=== PATIENT | female | born 1950 | race Caucasian/White ===

== ENCOUNTER 2016-03-08 10:20 | Day surgery (SDC) | payer MEDICARE, OTHER ==
[2016-03-08] MEDS ORDERED: KETOROLAC 0.45% OPHTH DROPS OPTH ONE (10:45)
[2016-03-08] MEDS ORDERED: TROPICAMIDE 1% OPHTH 2 ML DROPS OPTH ONE (10:45)
[2016-03-08] MEDS ORDERED: CYCLOPENTOLATE 1% OPHTH DROPS 2 ML OPTH ONE (10:45)
[2016-03-08] MEDS ORDERED: PROPOFOL 200 MG/20 ML VIAL IVP ONE (11:40)
[2016-03-08] MEDS ORDERED: LIDOCAINE-MPF 2% 5 ML VIAL IM ONE (11:40)
[2016-03-08] MEDS ORDERED: fentaNYL 100 MCG/2 ML VIAL IVP ONE (11:40)
[2016-03-08] MEDS ORDERED: MIDAZOLAM 2 MG/2 ML VIAL IVP ONE (11:40)
[2016-03-08] MEDS ORDERED: PROPARACAINE 0.5% OPHTH DROPS 15 ML OPTH ONE (11:41)
[2016-03-08] MEDS ORDERED: CHONDR SULF/HYALURONATE SYRINGE IO ONE (11:41)
[2016-03-08] MEDS ORDERED: levoFLOXacin 0.5% OPHTH DROPS 5 ML OPTH ONE (11:41)
[2016-03-08] MEDS ORDERED: EPINEPHrine 1 MG/ML AMP IO ONE (11:41)
[2016-03-08] MEDS ORDERED: BRIMONIDINE 0.2% OPHTH DROPS 5 ML OPTH ONE (11:41)
[2016-03-08] MEDS ORDERED: BSS/LIDOCAINE/EPINEPHRINE 1 ML SYRINGE IO ONE (11:42)
[2016-03-08] MEDS ORDERED: LACTATED RINGERS 500 ML IV ONE ×2 (11:42)
== END 2016-03-08 10:21 | disposition home or self-care (01) ==
PROC: 08RJ3JZ Replacement of Right Lens with Synthetic Substitute, Percutaneous Approach (ICD-10-PCS; principal; 2016-03-08 11:55)
DX: H26.9 Unspecified cataract (principal); I10 Essential (primary) hypertension; E78.5 Hyperlipidemia, unspecified; M19.90 Unspecified osteoarthritis, unspecified site
CPT/HCPCS: 66982; J7120; V2632

== ENCOUNTER 2016-03-29 08:17 | Day surgery (SDC) | payer MEDICARE, OTHER ==
[2016-03-29] MEDS ORDERED: LACTATED RINGERS 500 ML IV ONE (09:19)
[2016-03-29] MEDS ORDERED: CYCLOPENTOLATE 1% OPHTH DROPS 2 ML OPTH ONE (09:32)
[2016-03-29] MEDS ORDERED: TROPICAMIDE 1% OPHTH 2 ML DROPS OPTH ONE (09:32)
[2016-03-29] MEDS ORDERED: KETOROLAC 0.45% OPHTH DROPS OPTH ONE (09:32)
[2016-03-29] MEDS ORDERED: EPINEPHrine 1 MG/ML AMP IO ONE (11:11)
[2016-03-29] MEDS ORDERED: BRIMONIDINE 0.2% OPHTH DROPS 5 ML OPTH ONE (11:11)
[2016-03-29] MEDS ORDERED: CHONDR SULF/HYALURONATE SYRINGE IO ONE (11:11)
[2016-03-29] MEDS ORDERED: TETRACAINE OPHTH DROPS 2 ML OPTH ONE (11:11)
[2016-03-29] MEDS ORDERED: PROPARACAINE 0.5% OPHTH DROPS 15 ML OPTH ONE (11:11)
[2016-03-29] MEDS ORDERED: levoFLOXacin 0.5% OPHTH DROPS 5 ML OPTH ONE (11:11)
[2016-03-29] MEDS ORDERED: BSS/LIDOCAINE/EPINEPHRINE 1 ML SYRINGE IO ONE ×2 (11:11→11:19)
[2016-03-29] MEDS ORDERED: MIDAZOLAM 2 MG/2 ML VIAL IVP ONE (11:20)
== END 2016-03-29 08:18 | disposition home or self-care (01) ==
PROC: 08RK3JZ Replacement of Left Lens with Synthetic Substitute, Percutaneous Approach (ICD-10-PCS; principal; 2016-03-29 09:55)
DX: H26.9 Unspecified cataract (principal); I10 Essential (primary) hypertension; E78.5 Hyperlipidemia, unspecified; F32.9 Major depressive disorder, single episode, unspecified; E07.9 Disorder of thyroid, unspecified; M54.5 Low back pain; G89.29 Other chronic pain
CPT/HCPCS: 66984; V2632

== ENCOUNTER 2016-06-23 08:00 | Outpatient (CLI) | payer MEDICARE, OTHER | END 2016-06-23 08:01 | disposition home or self-care (01) | DX: E78.5 Hyperlipidemia, unspecified (principal); E03.9 Hypothyroidism, unspecified; C73 Malignant neoplasm of thyroid gland ==

== ENCOUNTER 2016-07-21 13:46 | Outpatient (CLI) | payer MEDICARE, OTHER ==
--- NOTE | 2016-07-24 13:03 | Mammography Report ---
DIGITAL SCREENING MAMMOGRAM: 07/21/2016 CLINICAL INDICATION: A 66-year-old for screening. COMPARISON: 03/2014, 02/2011, 04/2011, 10/2007. TECHNIQUE: Routine CC and MLO projections were obtained of the breasts. FINDINGS: The breasts again demonstrate scattered fibroglandular densities bilaterally. Coarse, typ ically benign calcifications are present. No suspicious masses, clustered microcalcifications, or re gions of architectural distortion are identified. IMPRESSION: BENIGN FINDINGS. RECOMMENDATION: Routine annual screening unless otherwise clinically indicated. BI-RADS category 2, benign findings. STANDARD QUALIFYING STATEMENTS 1. This examination was reviewed with the aid of Computer-Aided Detection (CAD). 2. A negative or benign imaging report should not delay biopsy if clinically suspicious findings are present. Consider surgical consultation if warranted. More than 5% of cancers are not identified by i maging. 3. Dense breasts may obscure an underlying neoplasm. JOB #: [id number] EXT JOB #:[id number]
== END 2016-07-21 13:47 | disposition home or self-care (01) ==
LOC: DI.N 13:46
PROVIDERS: ATTEND Physician Assistant Medical
DX: Z12.31 Encounter for screening mammogram for malignant neoplasm of breast (principal)
CPT/HCPCS: 77067

== ENCOUNTER 2016-08-18 15:56 | Outpatient (CLI) | payer MEDICARE, OTHER ==
--- NOTE | 2016-08-20 10:42 | XRAY Report ---
EXAM: RIGHT KNEE RADIOGRAPHY EXAM DATE: 08/18/2016 04:15 PM. CLINICAL HISTORY: Right knee pain. COMPARISON: None. TECHNIQUE: 3 views. FINDINGS: Bones: Normal. No fractures or bone lesions. Joints: Moderate medial compartment joint space narrowing is accompanied by moderate osteophyte forma tion. There is moderate lateral and mild patellofemoral compartment osteophyte formation. A minimal k nee effusion is seen. Soft Tissues: Normal. No soft tissue swelling. IMPRESSION: Moderate osteoarthritis. Kellgren-Romeo grade 3. Kellgren and Romeo classification of osteoarthritis: Grade 0: no radiographic features of osteoarthritis are present Grade 1: doubtful joint space narrowing (JSN) and possible osteophytic lipping Grade 2: definite osteophytes and possible JSN on anteroposterior weight-bearing radiograph Grade 3: multiple osteophytes, definite JSN, sclerosis, possible bony deformity Grade 4: large osteophytes, marked JSN, severe sclerosis and definite bony deformity [facility] Referring Provider Line: [phone] SITE ID: [id number]
== END 2016-08-18 15:57 | disposition home or self-care (01) ==
LOC: DI.N 15:56
PROVIDERS: ATTEND Physician Assistant Medical
DX: M17.11 Unilateral primary osteoarthritis, right knee (principal)

== ENCOUNTER 2016-09-15 11:51 | Outpatient (CLI) | payer MEDICARE, OTHER ==
[2016-09-15 19:10] LABS: EOSINOPHILS # (AUTO) 0.1 10^3/uL (0.0-0.7); HCT - HEMATOCRIT 38.9 % (37.0-47.0); HGB - HEMOGLOBIN 12.7 g/dL (12.0-16.0); LYMPHOCYTES # (AUTO) 1.8 10^3/uL (1.5-3.5); LYMPHOCYTES % (AUTO) 41.9 %; MEAN CORPUSCULAR HEMOGLOBIN 29.1 pg (27.0-31.0); MEAN CORPUSCULAR HGB CONC 32.8 g/dL (32.0-36.0); MEAN CORPUSCULAR VOLUME 88.8 fL (81.0-99.0); MEAN PLATELET VOLUME 8.4 fL (7.9-10.8); MONOCYTES # (AUTO) 0.4 10^3/uL (0.0-1.0); MONOCYTES % (AUTO) 8.7 %; NEUTROPHILS % (AUTO) 46.4 %; RED BLOOD COUNT 4.38 10^6/uL (4.20-5.40); UNCORRECTED WHITE BLOOD COUNT 4.3 x10^3/uL; WHITE BLOOD COUNT 4.3 x10^3/uL (4.8-10.8)
[2016-09-15 19:30] LABS: CALCIUM 8.4 mg/dL (8.5-10.3); CREATININE 0.6 mg/dL (0.4-1.0); POTASSIUM 3.4 mmol/L (3.5-5.0)
== END 2016-09-15 11:52 | disposition home or self-care (01) ==
LOC: LAB.WCP 11:51
PROVIDERS: ATTEND Physician Assistant Medical
DX: I10 Essential (primary) hypertension (principal); E03.9 Hypothyroidism, unspecified; M25.561 Pain in right knee
CPT/HCPCS: 36415; 80048; 84443; 85025

== ENCOUNTER 2016-09-22 07:57 | Outpatient (CLI) | payer MEDICARE, OTHER ==
--- NOTE | 2016-09-22 13:04 | DEXA Report ---
DEXA SCAN: 09/22/2016 CLINICAL INDICATION: Postmenopausal. TECHNIQUE: Dual energy x-ray absorptiometry (DXA) was performed on a [employer] system. Regions measured are the AP spine, femoral neck, and, if needed, forearm. COMPARISON: 08/26/2015. In accordance with the International Society for Clinical Densitometry (ISCD) guidelines, data from previous exams may be reanalyzed using current recommendations and techniques. This is done to allow a more accurate basis for comparison with the current study. FINDINGS: The data for the lumbar spine is as follows: REGION BMD (g/cm/cm) T-SCORE Z-SCORE L1 1.099 -0.3 0.8 L2 1.164 -0.3 0.8 L3 1.306 0.9 1.9 L4 1.290 0.7 1.8 TOTAL 1.222 0.4 1.4 NOTE: All evaluable vertebrae are used for classification. The data for the forearm is as follows: REGION BMD (g/cm/cm) T-SCORE Z-SCORE 1/3 0.899 0.6 2.3 NOTE: The 33% radius of the nondominant forearm is used for classification. DXA RESULTS SUMMARY: Spine SCAN DATE AGE BMD T-SCORE BMD CHANGE VS BASELINE BMD CHANGE VS PREVIOUS 09/22/2016 66 1.222 --- 0.022 1.8 08/25/2016 65 1.200 --- --- --- * Denotes significant change at the 95% confidence level. Denotes dissimilar scan types or analysis methods. IMPRESSION: 1. THE WHO CLASSIFICATION BASED ON THE INTERNATIONAL REFERENCE STANDARD IS NORMAL. THE FRACTURE RISK IS NOT INCREASED. 2. NO SIGNIFICAN INTERVAL CHANGE IN BONE MINERAL DENSITY OF THE LUMBAR SPINE. 3. LEFT FOREARM EVALUATION PERFORMED SECONDARY TO BILATERAL HIP REPLACEMENTS. RECOMMENDATION: Patients with diagnosis of osteoporosis or osteopenia should have regular bone mineral density assessment. For those eligible for Medicare, routine testing is allowed once every 2 years. Testing frequency can be increased for patients who have rapidly progressing disease or for those who are receiving medical therapy to restore bone mass. COMMENT: World Health Organization (WHO) definitions for osteoporosis and osteopenia: NORMAL BMD: T-score at -1.0 or higher, fracture risk is low. OSTEOPENIA BMD: T-score between -1.0 and -2.5, fracture risk is increased. OSTEOPOROSIS BMD: T-score at -2.5 or lower, fracture risk high. National Osteoporosis Foundation recommends: 1. Obtain adequate dietary calcium (at least 1200 mg per day) and vitamin D (400 -800 international units per day). 2. Participate, as appropriate, in regular weightbearing and muscle- strengthening exercise. 3. Avoid tobacco use and reduce alcohol and caffeine intake. 4. For more detailed information see the website at www.NOF.org. MTDD
== END 2016-09-22 07:58 | disposition home or self-care (01) ==
LOC: DI 07:57
PROVIDERS: ATTEND Physician Assistant Medical
DX: M89.9 Disorder of bone, unspecified (principal); I51.7 Cardiomegaly; R01.1 Cardiac murmur, unspecified; I10 Essential (primary) hypertension
CPT/HCPCS: 77080; 93306

== ENCOUNTER 2017-05-01 08:00 | Outpatient (CLI) | payer MEDICARE, OTHER ==
[2017-05-01 12:56] LABS: ALBUMIN 4.6 g/dL (3.2-5.5); ALBUMIN/GLOBULIN RATIO 1.8 (1.0-2.2); ALKALINE PHOSPHATASE 66 IU/L (42-121); ALT ALANINE AMINOTRANSFERASE 20 IU/L (10-60); AST ASPARTATE AMINOTRANSFERASE 33 IU/L (10-42); BILIRUBIN,TOTAL 0.9 mg/dL (0.2-1.0); BUN - BLOOD UREA NITROGEN 15 mg/dL (6-20); CALCIUM 8.4 mg/dL (8.5-10.3); CARBON DIOXIDE - CO2 26 mmol/L (21-32); CHLORIDE 98 mmol/L (101-111); CHOL/HDL RATIO 2.2 (<4.4); CHOLESTEROL 197 mg/dL; CREATININE 0.7 mg/dL (0.4-1.0); GFR - MDRD 83 (>89); GLUCOSE 105 mg/dL (70-100); HDL CHOLESTEROL 91 mg/dL; LDL CHOLESTEROL,CALCULATED 91 mg/dL; SODIUM 133 mmol/L (135-145); TOTAL PROTEIN 7.1 g/dL (6.7-8.2); VLDL CHOLESTEROL 15 mg/dL
[2017-05-01 13:01] LABS: THYROID STIMULATING HORMONE 13.98 uIU/mL (0.34-5.60)
[2017-05-01 13:38] LABS: FREE T4 (FREE THYROXINE) 0.82 ng/dL (0.58-1.64)
== END 2017-05-01 08:01 ==
LOC: LAB.WCP 08:00
PROVIDERS: ATTEND Physician Assistant Medical
DX: I10 Essential (primary) hypertension (principal); E78.5 Hyperlipidemia, unspecified; E03.9 Hypothyroidism, unspecified
CPT/HCPCS: 36415; 80053; 80061; 83721; 84439; 84443

== ENCOUNTER 2017-07-03 12:24 | Outpatient (CLI) | payer MEDICARE, OTHER ==
--- NOTE | 2017-07-03 13:07 | CT Report ---
CT BRAIN WITHOUT CONTRAST: 07/03/2017 CLINICAL INDICATION: Traumatic headache. TECHNIQUE: Axial CT images of the brain were obtained without intravenous contrast. COMPARISON: No previous CT is available for comparison. FINDINGS: The ventricles and sulci are normal in size, shape and configuration. The basilar cisterns are patent. There is no evidence of intracranial hemorrhage, mass effect, or midline shift. The visualized orbital contents and paranasal sinuses appear unremarkable. There is a left frontal scalp hematoma. No calvarial fracture is identified. IMPRESSION: NO EVIDENCE OF INTRACRANIAL HEMORRHAGE OR MASS EFFECT. LEFT FRONTAL SCALP HEMATOMA. CT DOSE REDUCTION STATEMENT In accordance with CT protocol optimization, one or more of the following dose reduction techniques were utilized for this exam: automated exposure control, adjustment of mA and/or KV based on patient size, or use of iterative reconstructive technique. TD: 07/03/2017 12:50
--- NOTE | 2017-07-03 13:09 | CT Report ---
CT FACIAL BONES WITHOUT CONTRAST: 07/03/2017 CLINICAL INDICATION: Fall, pain. TECHNIQUE: Axial CT images of the facial bones were obtained without intravenous contrast, following which sagittal and coronal reconstructions were performed. COMPARISON: No previous CT is available for comparison. FINDINGS: There is minimal mucosal thickening in the maxillary sinuses. There is no evidence of acute fracture. The mandibular condyle are normally located in the temporal fossa bilaterally. Degenerative changes are seen in the visualized upper cervical spine. The visualized mastoid air cells are normally pneumatized. IMPRESSION: CHRONIC SINUS DISEASE. NO EVIDENCE OF FACIAL BONE FRACTURE. CT DOSE REDUCTION STATEMENT In accordance with CT protocol optimization, one or more of the following dose reduction techniques were utilized for this exam: automated exposure control, adjustment of mA and/or KV based on patient size, or use of iterative reconstructive technique. TD: 07/03/2017 12:57
== END 2017-07-03 12:25 | disposition home or self-care (01) ==
LOC: DI 12:24
PROVIDERS: ATTEND Physician Assistant Medical
DX: G44.309 Post-traumatic headache, unspecified, not intractable (principal); S00.03XA Contusion of scalp, initial encounter; J32.9 Chronic sinusitis, unspecified
CPT/HCPCS: 70450; 70486

== ENCOUNTER 2017-11-28 10:35 | Outpatient (CLI) | payer MEDICARE, OTHER ==
--- NOTE | 2017-11-29 11:25 | Mammography Report ---
Reason: SCREENING MAMMO Procedure Date: 11/28/2017 Accession Number: [id number] / [id number] Procedure: MGN - Screening Mammo Dig Bilat CPT Code: FULL RESULT: EXAM: Screening Mammo Dig Bilat DATE: 11/28/2017 10:55 AM CLINICAL HISTORY: Routine screening TECHNIQUE: Bilateral CC and MLO views were obtained. COMPARISON: 07/21/2016, 03/26/2014, 12/14/2011 and 04/30/2009 FINDINGS: There are scattered fibroglandular densities. There is no significant interval change. No suspicious masses, clustered microcalcifications, or regions of architectural distortion are identified. IMPRESSION: Negative examination RECOMMENDATION: Routine annual screening unless otherwise clinically indicated. BIRADS CATEGORY 1: Negative STANDARD QUALIFYING STATEMENTS: 1. This examination was reviewed with the aid of Computer-Aided Detection (CAD). 2. A negative or benign imaging report should not delay biopsy if clinically suspicious findings are present. Consider surgical consultation if warrented. More than 5% of cancers are not identified by imaging. 3. Dense breasts may obscure an underlying neoplasm.
== END 2017-11-28 10:36 | disposition home or self-care (01) ==
LOC: DI.N 10:35
DX: Z12.31 Encounter for screening mammogram for malignant neoplasm of breast (principal)
CPT/HCPCS: 77067

== ENCOUNTER 2017-12-25 15:09 | Outpatient (CLI) | payer MEDICARE, OTHER ==
[2017-12-25 19:18] LABS: THYROID STIMULATING HORMONE 0.22 uIU/mL (0.34-5.60)
[2017-12-25 20:15] LABS: FREE T4 (FREE THYROXINE) 1.09 ng/dL (0.58-1.64)
== END 2017-12-25 15:10 | disposition home or self-care (01) ==
LOC: LAB.WCP 15:09
PROVIDERS: ATTEND Physician Assistant Medical
DX: E03.9 Hypothyroidism, unspecified (principal)
CPT/HCPCS: 36415; 84439; 84443

== ENCOUNTER 2018-04-01 08:00 | Outpatient (CLI) | payer MEDICARE, OTHER ==
[2018-04-01 12:21] LABS: BASOPHILS % (AUTO) 1.3 %; EOSINOPHILS # (AUTO) 0.1 10^3/uL (0.0-0.7); EOSINOPHILS % (AUTO) 2.8 %; HGB - HEMOGLOBIN 13.9 g/dL (12.0-16.0); LYMPHOCYTES # (AUTO) 0.9 10^3/uL (1.5-3.5); LYMPHOCYTES % (AUTO) 24.4 %; MEAN CORPUSCULAR HEMOGLOBIN 30.3 pg (27.0-31.0); MEAN CORPUSCULAR HGB CONC 34.4 g/dL (32.0-36.0); MEAN CORPUSCULAR VOLUME 88.1 fL (81.0-99.0); MEAN PLATELET VOLUME 8.5 fL (7.9-10.8); MONOCYTES # (AUTO) 0.5 10^3/uL (0.0-1.0); MONOCYTES % (AUTO) 13.4 %; NEUTROPHILS # (AUTO) 2.2 10^3/uL (1.5-6.6); NEUTROPHILS % (AUTO) 58.1 %; PLT - PLATELET COUNT 234 10^3/uL (130-450); RED BLOOD COUNT 4.57 10^6/uL (4.20-5.40); RED CELL DISTRIBUTION WIDTH 16.1 % (12.0-15.0); WHITE BLOOD COUNT 3.8 x10^3/uL (4.8-10.8)
[2018-04-01 12:56] LABS: ALBUMIN 4.2 g/dL (3.2-5.5); ALBUMIN/GLOBULIN RATIO 1.4 (1.0-2.2); ALKALINE PHOSPHATASE 86 IU/L (42-121); ALT ALANINE AMINOTRANSFERASE 18 IU/L (10-60); AST ASPARTATE AMINOTRANSFERASE 25 IU/L (10-42); BILIRUBIN,TOTAL 0.9 mg/dL (0.2-1.0); BUN - BLOOD UREA NITROGEN 16 mg/dL (6-20); CALCIUM 8.2 mg/dL (8.5-10.3); CARBON DIOXIDE - CO2 28 mmol/L (21-32); CHLORIDE 97 mmol/L (101-111); CHOL/HDL RATIO 1.9 (<4.4); CHOLESTEROL 187 mg/dL; CREATININE 0.6 mg/dL (0.4-1.0); GFR - MDRD 99 (>89); GLUCOSE 108 mg/dL (70-100); HDL CHOLESTEROL 100 mg/dL; LDL CHOLESTEROL,CALCULATED 79 mg/dL; LDL/HDL RATIO 0.8 (<4.4); SODIUM 134 mmol/L (135-145); TOTAL PROTEIN 7.1 g/dL (6.7-8.2); VLDL CHOLESTEROL 8 mg/dL
== END 2018-04-01 23:59 | disposition home or self-care (01) ==
LOC: LAB.WCP 08:00
PROVIDERS: ATTEND Physician Assistant Medical
DX: E78.5 Hyperlipidemia, unspecified (principal); E03.9 Hypothyroidism, unspecified; M16.9 Osteoarthritis of hip, unspecified
CPT/HCPCS: 36415; 80053; 80061; 83721; 84443; 85025

== ENCOUNTER 2019-03-03 08:00 | Outpatient (CLI) | payer MEDICARE, OTHER ==
[2019-03-03 12:03] LABS: BASOPHILS % (AUTO) 1.2 %; EOSINOPHILS # (AUTO) 0.1 10^3/uL (0.0-0.7); EOSINOPHILS % (AUTO) 2.1 %; HGB - HEMOGLOBIN 14.7 g/dL (12.0-16.0); LYMPHOCYTES % (AUTO) 31.6 %; MEAN CORPUSCULAR HEMOGLOBIN 31.6 pg (27.0-31.0); MEAN CORPUSCULAR HGB CONC 33.1 g/dL (32.0-36.0); MEAN CORPUSCULAR VOLUME 95.5 fL (81.0-99.0); MEAN PLATELET VOLUME 10.2 fL (7.9-10.8); MONOCYTES # (AUTO) 0.5 10^3/uL (0.0-1.0); MONOCYTES % (AUTO) 14.7 %; NEUTROPHILS # (AUTO) 1.6 10^3/uL (1.5-6.6); NEUTROPHILS % (AUTO) 50.1 %; PLT - PLATELET COUNT 229 10^3/uL (130-450); RED BLOOD COUNT 4.65 10^6/uL (4.20-5.40); RED CELL DISTRIBUTION WIDTH 12.6 % (12.0-15.0); WHITE BLOOD COUNT 3.3 x10^3/uL (4.8-10.8)
[2019-03-03 12:43] LABS: ALBUMIN 4.1 g/dL (3.2-5.5); ALBUMIN/GLOBULIN RATIO 1.5 (1.0-2.2); ALKALINE PHOSPHATASE 67 IU/L (42-121); ALT ALANINE AMINOTRANSFERASE 21 IU/L (10-60); AST ASPARTATE AMINOTRANSFERASE 27 IU/L (10-42); BILIRUBIN,TOTAL 1.1 mg/dL (0.2-1.0); BUN - BLOOD UREA NITROGEN 11 mg/dL (6-20); CALCIUM 8.3 mg/dL (8.5-10.3); CARBON DIOXIDE - CO2 28 mmol/L (21-32); CHLORIDE 96 mmol/L (101-111); CHOLESTEROL 196 mg/dL; CREATININE 0.6 mg/dL (0.4-1.0); GLUCOSE 90 mg/dL (70-100); HDL CHOLESTEROL 99 mg/dL; LDL CHOLESTEROL,CALCULATED 89 mg/dL; LDL/HDL RATIO 0.9 (<4.4); SODIUM 132 mmol/L (135-145); TOTAL PROTEIN 6.9 g/dL (6.7-8.2); VLDL CHOLESTEROL 8 mg/dL
== END 2019-03-03 23:59 | disposition home or self-care (01) ==
LOC: LAB.WCP 08:00
PROVIDERS: ATTEND Physician Assistant Medical
DX: E78.5 Hyperlipidemia, unspecified (principal); E03.9 Hypothyroidism, unspecified; R41.3 Other amnesia
CPT/HCPCS: 36415; 80053; 80061; 82607; 82746; 83721; 84425; 84443; 85025

== ENCOUNTER 2019-09-30 07:18 | Outpatient (CLI) | payer MEDICARE, OTHER ==
[2019-09-30 12:10] LABS: BASOPHILS % (AUTO) 1.1 %; EOSINOPHILS # (AUTO) 0.1 10^3/uL (0.0-0.7); EOSINOPHILS % (AUTO) 2.8 %; HGB - HEMOGLOBIN 14.3 g/dL (12.0-16.0); LYMPHOCYTES # (AUTO) 1.1 10^3/uL (1.5-3.5); LYMPHOCYTES % (AUTO) 29.7 %; MEAN CORPUSCULAR HEMOGLOBIN 33.8 pg (27.0-31.0); MEAN CORPUSCULAR HGB CONC 33.9 g/dL (32.0-36.0); MEAN CORPUSCULAR VOLUME 99.8 fL (81.0-99.0); MEAN PLATELET VOLUME 10.2 fL (7.9-10.8); MONOCYTES # (AUTO) 0.5 10^3/uL (0.0-1.0); MONOCYTES % (AUTO) 13.2 %; NEUTROPHILS # (AUTO) 1.9 10^3/uL (1.5-6.6); NEUTROPHILS % (AUTO) 53.2 %; PLT - PLATELET COUNT 197 10^3/uL (130-450); RED BLOOD COUNT 4.23 10^6/uL (4.20-5.40); RED CELL DISTRIBUTION WIDTH 12.4 % (12.0-15.0); WHITE BLOOD COUNT 3.6 x10^3/uL (4.8-10.8)
[2019-09-30 12:49] LABS: ALBUMIN 4.2 g/dL (3.2-5.5); ALBUMIN/GLOBULIN RATIO 1.8 (1.0-2.2); ALKALINE PHOSPHATASE 65 IU/L (42-121); ALT ALANINE AMINOTRANSFERASE 24 IU/L (10-60); AST ASPARTATE AMINOTRANSFERASE 29 IU/L (10-42); BILIRUBIN,TOTAL 0.8 mg/dL (0.2-1.0); BUN - BLOOD UREA NITROGEN 16 mg/dL (6-20); CALCIUM 8.3 mg/dL (8.5-10.3); CARBON DIOXIDE - CO2 30 mmol/L (21-32); CHLORIDE 98 mmol/L (101-111); CHOL/HDL RATIO 2.3 (<4.4); CHOLESTEROL 202 mg/dL; CREATININE 0.7 mg/dL (0.4-1.0); GLUCOSE 103 mg/dL (70-100); HDL CHOLESTEROL 86 mg/dL; LDL CHOLESTEROL,CALCULATED 97 mg/dL; LDL/HDL RATIO 1.1 (<4.4); SODIUM 134 mmol/L (135-145); TOTAL PROTEIN 6.5 g/dL (6.7-8.2); VLDL CHOLESTEROL 19 mg/dL
== END 2019-09-30 23:59 | disposition home or self-care (01) ==
LOC: LAB.WCP 07:18
PROVIDERS: ATTEND Physician Assistant Medical
DX: E78.5 Hyperlipidemia, unspecified (principal); E03.9 Hypothyroidism, unspecified; I10 Essential (primary) hypertension
CPT/HCPCS: 36415; 80053; 80061; 83721; 84443; 85025

== ENCOUNTER 2019-10-09 16:49 | Outpatient (CLI) | payer MEDICARE, OTHER ==
--- NOTE | 2019-10-09 18:41 | Ultrasound Report ---
PROCEDURE: Head or Neck Soft Tissue INDICATIONS: CARCINOMA,THYROID GLAND,FOLLICULAR TECHNIQUE: Real time scanning was performed of the neck region of interest, with image documentation . COMPARISON: 06/30/2014 FINDINGS: The thyroid gland is surgically absent. Bilateral circumscribed, rounded masses in each thy roid bed. Nodule in the right measures 3 x 3 x 3 mm and there is a feeding vessel, but no definite hi lum. On the left a similar echogenicity mass measures 3 x 2 x 2 mm without definite vascularity. Ther e is through transmission within each of these which are well-circumscribed. Small lymph nodes are pr esent in the right lateral compartment. IMPRESSION: 1. Bilateral small solid nodules in the thyroid bed. Differential diagnosis includes parathyroid glan ds, lymph nodes, less likely recurrent tumor. Correlation with thyroglobulin levels is recommended an d consider nuclear medicine thyroid uptake scan. Reviewed by: Ashley Gil MD on 10/09/2019 6:40 PM PDT Approved by: Ashley Gil MD on 10/09/2019 6:40 PM PDT Station ID: [id number]
== END 2019-10-09 16:50 | disposition home or self-care (01) ==
LOC: DI 16:49
PROVIDERS: ATTEND Physician Assistant Medical
DX: C73 Malignant neoplasm of thyroid gland (principal)
CPT/HCPCS: 76536

== ENCOUNTER 2019-10-14 12:37 | Outpatient (CLI) | payer MEDICARE, OTHER ==
--- NOTE | 2019-10-15 12:08 | Mammography Report ---
BILATERAL DIGITAL SCREENING MAMMOGRAM 3D/2D: 10/14/2019 CLINICAL: Routine screening. Comparison is made to exams dated: 11/28/2017 mammogram, 07/21/2016 mammogram, 03/26/2014 mammogram, an d 12/14/2011 mammogram - [facility]. There are scattered fibroglandular elements in both breasts. No significant masses, calcifications, or other findings are seen in either breast. There has been no significant interval change. IMPRESSION: NEGATIVE There is no mammographic evidence of malignancy. A 1 year screening mammogram is recommended. This exam was interpreted at Station ID: [id number]. NOTE: For mammograms, a report in lay terms will be sent to the patient. Approximately 15% of breast malignancies will not be visualized mammographically. In the management of a palpable breast mass, a negative mammogram must not discourage biopsy of a clinically suspicious lesion. Electronically Signed By: Tere aleman/donna:10/14/2019 13:48:00 ACR BI-RADS Category 1: Negative 3341F PARENCHYMAL PATTERN: (A) - The breast(s) demonstrate(s) scattered fibroglandular densities. BI-RADS CATEGORY: (1) - 1 RECOMMENDATION: (ANNUAL) - Recommend routine annual screening mammography. [id number] 1 year screening LATERALITY: (B)
== END 2019-10-14 12:38 | disposition home or self-care (01) ==
LOC: DI.N 12:37
DX: Z12.31 Encounter for screening mammogram for malignant neoplasm of breast (principal)
CPT/HCPCS: 77063; 77067

== ENCOUNTER 2019-10-16 08:20 | Outpatient (CLI) | payer MEDICARE, OTHER | END 2019-10-16 23:59 | disposition home or self-care (01) | LOC: LAB.WCP 08:20 | PROVIDERS: ATTEND Physician Assistant Medical | DX: C73 Malignant neoplasm of thyroid gland (principal) | CPT/HCPCS: 36415; 86376; 86800 ==

== ENCOUNTER 2020-05-05 08:00 | Outpatient (CLI) | payer MEDICARE, OTHER ==
[2020-05-05 13:00] LABS: ALBUMIN 4.5 g/dL (3.2-5.5); ALBUMIN/GLOBULIN RATIO 1.6 (1.0-2.2); ALKALINE PHOSPHATASE 80 IU/L (42-121); ALT ALANINE AMINOTRANSFERASE 22 IU/L (10-60); AST ASPARTATE AMINOTRANSFERASE 27 IU/L (10-42); BILIRUBIN,TOTAL 1.1 mg/dL (0.2-1.0); BUN - BLOOD UREA NITROGEN 13 mg/dL (6-20); CALCIUM 8.9 mg/dL (8.5-10.3); CARBON DIOXIDE - CO2 29 mmol/L (21-32); CHLORIDE 96 mmol/L (101-111); CHOL/HDL RATIO 2.6 (<4.4); CHOLESTEROL 216 mg/dL; CREATININE 0.6 mg/dL (0.4-1.0); GFR - MDRD 98 (>89); GLUCOSE 107 mg/dL (70-100); HDL CHOLESTEROL 82 mg/dL; LDL CHOLESTEROL,CALCULATED 109 mg/dL; LDL/HDL RATIO 1.3 (<4.4); POTASSIUM 4.5 mmol/L (3.5-5.0); SODIUM 133 mmol/L (135-145); TOTAL PROTEIN 7.3 g/dL (6.7-8.2); TRIGLYCERIDES 123 mg/dL; VLDL CHOLESTEROL 25 mg/dL
[2020-05-05 13:03] LABS: THYROID STIMULATING HORMONE 0.68 uIU/mL (0.34-5.60)
== END 2020-05-05 23:59 | disposition home or self-care (01) ==
LOC: LAB.WCP 08:00
PROVIDERS: ATTEND Physician Assistant Medical
DX: E78.5 Hyperlipidemia, unspecified (principal); E03.9 Hypothyroidism, unspecified
CPT/HCPCS: 36415; 80053; 80061; 83721; 84443

== ENCOUNTER 2020-10-01 07:47 | Outpatient (CLI) | payer MEDICARE, OTHER ==
[2020-10-01 11:48] LABS: EOSINOPHILS # (AUTO) 0.1 10^3/uL (0.0-0.7); EOSINOPHILS % (AUTO) 2.3 %; HCT - HEMATOCRIT 43.4 % (37.0-47.0); HGB - HEMOGLOBIN 14.5 g/dL (12.0-16.0); LYMPHOCYTES % (AUTO) 25.8 %; MEAN CORPUSCULAR HEMOGLOBIN 32.6 pg (27.0-31.0); MEAN CORPUSCULAR HGB CONC 33.4 g/dL (32.0-36.0); MEAN CORPUSCULAR VOLUME 97.5 fL (81.0-99.0); MEAN PLATELET VOLUME 10.1 fL (7.9-10.8); MONOCYTES # (AUTO) 0.5 10^3/uL (0.0-1.0); NEUTROPHILS # (AUTO) 2.3 10^3/uL (1.5-6.6); NEUTROPHILS % (AUTO) 57.6 %; PLT - PLATELET COUNT 236 10^3/uL (130-450); RED BLOOD COUNT 4.45 10^6/uL (4.20-5.40); RED CELL DISTRIBUTION WIDTH 12.4 % (12.0-15.0); WHITE BLOOD COUNT 3.9 x10^3/uL (4.8-10.8)
[2020-10-01 12:29] LABS: ALBUMIN 4.3 g/dL (3.2-5.5); ALBUMIN/GLOBULIN RATIO 1.8 (1.0-2.2); ALKALINE PHOSPHATASE 73 IU/L (42-121); ALT ALANINE AMINOTRANSFERASE 19 IU/L (10-60); AST ASPARTATE AMINOTRANSFERASE 25 IU/L (10-42); BUN - BLOOD UREA NITROGEN 12 mg/dL (6-20); CALCIUM 8.9 mg/dL (8.5-10.3); CARBON DIOXIDE - CO2 29 mmol/L (21-32); CHLORIDE 98 mmol/L (101-111); CHOL/HDL RATIO 2.4 (<4.4); CHOLESTEROL 191 mg/dL; CREATININE 0.6 mg/dL (0.4-1.0); GFR - MDRD 98 (>89); GLUCOSE 102 mg/dL (70-100); HDL CHOLESTEROL 79 mg/dL; LDL CHOLESTEROL,CALCULATED 88 mg/dL; LDL/HDL RATIO 1.1 (<4.4); POTASSIUM 4.2 mmol/L (3.5-5.0); SODIUM 137 mmol/L (135-145); TOTAL PROTEIN 6.7 g/dL (6.7-8.2); TRIGLYCERIDES 122 mg/dL; VLDL CHOLESTEROL 24 mg/dL
[2020-10-01 13:24] LABS: THYROID STIMULATING HORMONE 0.65 uIU/mL (0.34-5.60)
== END 2020-10-01 23:59 | disposition home or self-care (01) ==
LOC: LAB.WCP 07:47
PROVIDERS: ATTEND Physician Assistant Medical
DX: E78.5 Hyperlipidemia, unspecified (principal); R53.83 Other fatigue; E03.9 Hypothyroidism, unspecified
CPT/HCPCS: 36415; 80053; 80061; 82306; 82607; 82728; 83721; 84443; 85025

== ENCOUNTER 2020-10-25 09:00 | Outpatient (CLI) | payer MEDICARE, OTHER ==
--- NOTE | 2020-10-25 15:05 | DEXA Report ---
PROCEDURE: Dexa Spine and/or Hip INDICATIONS: OSTEOPENIA TECHNIQUE: Dual energy x-ray absorptiometry (DXA) was performed on a [employer] System. Regions measur ed are the AP Spine, femoral neck, and if needed forearm. COMPARISON: 09/22/2016 FINDINGS: Lumbar Spine: Bone Mineral Density 1.200 g/cm/cm,T score 0.2, not statistically changed since the most recent pr ior study. The measured bone mineral density of the lumbar spine is spuriously elevated by degenerati ve disc disease and associated sclerotic endplate change. Left forearm: Bone Mineral Density 0.861 g/cm/cm, T score 10.2, not statistically changed since the most recent jayson or study (T score greater or equal to -1.0: NORMAL) (T score from -1.1 to -2.4: OSTEOPENIA) (T score less than or equal to -2.5 to: OSTEOPOROSIS) Impression: Normal bone mineral density measurements. However, the lumbar spine density is spuriously increased by degenerative disc disease with associated sclerotic endplate change. Gross change from most recent prior study. Patients with diagnosis of osteoporosis or osteopenia should have regular bone mineral density assess ment. For those eligible for Medicare, routine testing is allowed once every 2 years. Testing frequ ency can be increased for patients who have rapidly progressing disease or for those who are receivin g medical therapy to restore bone mass. Reviewed by: Eduardo Rich MD on 10/25/2020 3:03 PM PDT Approved by: Eduardo Rich MD on 10/25/2020 3:03 PM PDT Station ID: [id number]
== END 2020-10-25 09:01 | disposition home or self-care (01) ==
LOC: DI 09:00
PROVIDERS: ATTEND Physician Assistant Medical
DX: M85.80 Other specified disorders of bone density and structure, unspecified site (principal); M85.88 Other specified disorders of bone density and structure, other site; M51.36 Other intervertebral disc degeneration, lumbar region

== ENCOUNTER 2021-03-08 09:37 | Outpatient (CLI) | payer MEDICARE, OTHER ==
--- NOTE | 2021-03-08 13:14 | XRAY Report ---
PROCEDURE: Cervical Spine 2 View INDICATIONS: NECK PAIN TECHNIQUE: 3 view(s) of the cervical spine were acquired. COMPARISON: None. FINDINGS: Bones: No fractures or dislocations to the T2 level. The lateral masses of C1 appear intact on the odontoid view. No suspicious bony lesions. Severe C4-C5, C5-C6 and C6-7 C7 degenerative disc disease . Moderate C2-C3 and C3 on C4 degenerative disc disease. Mild C7-T1 degenerative disc disease. Mild b ilateral C2-C3, C3 on C4, C4-C5, C5-C6, C6-7 C7 and C7-T1 facet hypertrophy. Severe bilateral C4-C5 a nd C5-C6 uncovertebral joint hypertrophy. Mild bilateral CC 3-C4 and C6-7 C7 uncovertebral joint hype rtrophy. Soft tissues: No prevertebral soft tissue swelling. IMPRESSION: 1. Multilevel degenerative disc disease. 2. Multilevel facet and uncovertebral arthropathy. 3. No fracture. No acute osseous lesion. If there is continued clinical concern for pathology, then M RI should be considered for further evaluation. Reviewed by: Ellen Cintron MD, PhD on 03/08/2021 1:13 PM PST Approved by: Ellen Cintron MD, PhD on 03/08/2021 1:13 PM PST Station ID: [id number]
== END 2021-03-08 09:38 | disposition home or self-care (01) ==
LOC: DI.N 09:37
PROVIDERS: ATTEND Nurse Practitioner Family
DX: M47.812 Spondylosis without myelopathy or radiculopathy, cervical region (principal); M50.31 Other cervical disc degeneration, high cervical region

== ENCOUNTER 2021-08-03 08:54 | Outpatient (CLI) | payer MEDICARE, OTHER ==
--- NOTE | 2021-08-04 07:48 | Mammography Report ---
BILATERAL DIGITAL SCREENING MAMMOGRAM 3D/2D: 08/03/2021 CLINICAL: Routine screening. Comparison is made to exams dated: 10/14/2019 mammogram, 11/28/2017 mammogram, and 07/21/2016 mammogram - [facility]. There are scattered fibroglandular elements in both breasts. No significant masses, calcifications, or other findings are seen in either breast. There has been no significant interval change. IMPRESSION: NEGATIVE There is no mammographic evidence of malignancy. A 1 year screening mammogram is recommended. This exam was interpreted at Station ID: [id number]. NOTE: For mammograms, a report in lay terms will be sent to the patient. Approximately 15% of breast malignancies will not be visualized mammographically. In the management of a palpable breast mass, a negative mammogram must not discourage biopsy of a clinically suspicious lesion. Electronically Signed By: Paul Peterson M.D. ar/penrad:08/03/2021 10:12:40 ACR BI-RADS Category 1: Negative 3341F PARENCHYMAL PATTERN: (A) - The breast(s) demonstrate(s) scattered fibroglandular densities. BI-RADS CATEGORY: (1) - 1 RECOMMENDATION: (ANNUAL) - Recommend routine annual screening mammography. [id number] 1 year screening LATERALITY: (B)
== END 2021-08-03 08:55 | disposition home or self-care (01) ==
LOC: DI.N 08:54
DX: Z12.31 Encounter for screening mammogram for malignant neoplasm of breast (principal)

== ENCOUNTER 2021-08-23 15:31 | Emergency (ER) | payer MEDICARE, OTHER ==
[2021-08-23 15:40] VITALS: BP 134/66
--- NOTE | 2021-08-23 15:47 | ED Physician Documentation ---
PD HPI MAJOR TRAUMA - Stated complaint Stated Complaint: HEAD INJ/FELL OFF STEPS/CONFUSION - Chief complaint Chief Complaint: Trauma Hd/Nk - History obtained from History obtained from: Patient - Additional information Additional information: She was coming on the stairs in her garage 2 days ago carrying laundry and she slipped forward hitting her face on concrete. She feels spacey but not headachy or nauseous. She has periorbital pain on the left but no diplopia. No other injuries. She is not anticoagulated. Review of Systems Ten Systems: 10 systems reviewed and negative Constitutional: denies: Fever, Chills Throat: reports: Reviewed and negative Cardiac: reports: Reviewed and negative Respiratory: reports: Reviewed and negative PD PAST MEDICAL HISTORY - Past Medical History Cardiovascular: Hypertension, High cholesterol Respiratory: None Endocrine/Autoimmune: Other GI: None : None HEENT: None Psych: Depression Musculoskeletal: Osteoarthritis Derm: None - Past Surgical History General: Colonoscopy, Other Ortho: Hip replacement, Knee replacement HEENT: Tonsil/Adenoidectomy - Present Medications Home Medications: Ambulatory Orders Medication Instructions Recorded Confirmed Aspirin [Adult Low Dose Aspirin EC] 81 mg PO DAILY 04/19/15 03/29/16 Htee/D3/Mag11/Zinc/Overhead Door Technician/Mario/Bor 1 each PO BID 04/19/15 03/29/16 [Caltrate 600+D Plus Tablet] Citalopram Hydrobromide [Celexa] 40 mg PO DAILY 04/19/15 03/29/16 Glucosamine/D3/Boswellia Elli 1 each PO DAILY 04/19/15 03/29/16 [Glucosamine Daily Complex Tab] Levothyroxine [Synthroid] 100 mcg PO QDAC 04/19/15 03/29/16 Lovastatin 40 mg PO DAILY 04/19/15 03/29/16 Magnesium 250 mg PO DAILY 04/19/15 03/29/16 Melatonin/Pyridoxine HCl (B6) [Pv 1 each PO DAILY 04/19/15 03/29/16 Melatonin-B6 3 mg-1 mg Tab] Multivitamin [Multivitamins] 1 each PO DAILY 04/19/15 03/29/16 Grassflat-3S/Dha/Epa/Fish Oil [Fish 1 each PO DAILY 04/19/15 03/29/16 Oil 1,200 mg Softgel] Potassium Bicarbonate 25 meq PO DAILY 04/19/15 03/29/16 [K-Effervescent] Triamterene/Hydrochlorothiazid 1 each PO DAILY 04/19/15 03/29/16 [Triamterene-Hctz 75-50 mg Tab] - Allergies Allergies/Adverse Reactions: Allergies Allergy/AdvReac Type Severity Reaction Status Date / Time No Known Drug Allergies Allergy Verified 08/23/21 15:40 PD ED PE NORMAL - Vitals Vital signs reviewed: Yes - General General: Alert and oriented X 3 (Mildly slow to answer questions), No acute distress - HEENT HEENT: Other (Significant left-sided periorbital hematoma/contusion without much swelling. Significant tenderness in the left infraorbital area. No sign of entrapment.) - Neck Neck: Supple, no meningeal sign, No bony TTP - Neuro Neuro: Alert and oriented X 3, software firmware engineer 2-12 intact, No motor deficit, No sensory deficit, Normal speech Eye Opening: Spontaneous Motor: Obeys Commands Verbal: Oriented GCS Score: 15 Results - Vitals Vitals: Vital Signs - 24 hr 08/23/21 15:34 Temperature 36.5 C Heart Rate 78 Respiratory 16 Rate Blood Pressure 134/66 H O2 Saturation 97 Oxygen O2 Source Room air - Rads (name of study) CT of the head, face, cervical spine all negative except for periorbital contusion, no fracture Radiology: EMP read contemporaneously Departure - Departure Disposition: 01 Home, Self Care Clinical Impression: Facial contusion Qualifiers: Encounter type: initial encounter Qualified Code(s): S00.83XA - Contusion of other part of head, initial encounter Concussion Qualifiers: Encounter type: initial encounter Loss of consciousness presence/duration: without LOC Qualified Code(s): S06.0X0A - Concussion without loss of consciou sness, initial encounter Condition: Good Record reviewed to determine appropriate education?: Yes Instructions: ED Concussion, ED Contusion Face Comments: You are seen today for facial contusion and symptoms consistent with concussion. Thankfully CT scans of the head face and neck are without positive findings. This does not mean you do not have a concussion, but rather rules out more serious injuries such as bleeding on the brain. Recheck with your doctor in a week if not better, return for new or worsening symptoms. Generally take it easy and minimize stressful exertional activity. Drink plenty of fluids and get plenty of rest.
--- NOTE | 2021-08-23 16:16 | CT Report ---
PROCEDURE: HEAD WO INDICATIONS: Head and left-sided facial injuries TECHNIQUE: Noncontrast 4.5 mm thick angled axial sections acquired from the foramen magnum to the vertex. For r adiation dose reduction, the following was used: automated exposure control, adjustment of mA and/or kV according to patient size. COMPARISON: None. FINDINGS: Image quality: Excellent. CSF spaces: Basal cisterns are patent. No extra-axial fluid collections. Ventricles are normal in size and shape. Brain: No midline shift. No intracranial masses or hemorrhage. Lawrence-white matter interface is norm al. Skull and face: Calvarium and visualized facial bones are intact, without suspicious lesions. Sinuses: Visualized sinuses and mastoids are clear. IMPRESSION: No acute intracranial abnormality. Reviewed by: Levi Kennedy MD on 08/23/2021 4:15 PM PDT Approved by: Levi Kennedy MD on 08/23/2021 4:15 PM PDT Station ID: [id number]
--- NOTE | 2021-08-23 16:17 | CT Report ---
PROCEDURE: CERVICAL SPINE WO INDICATIONS: Head and left-sided facial injuries TECHNIQUE: Noncontrast 3 mm thick sections acquired from the skull base to the T4 level. Sagittal and coronal r eformats were then constructed. For radiation dose reduction, the following was used: automated exp osure control, adjustment of mA and/or kV according to patient size. COMPARISON: None. FINDINGS: No fracture, dislocation, or subluxation. Facet joints congruent without abnormal widening. Mild dege nerative anterolisthesis of C3 on C4 measuring 3 mm and retrolisthesis of C5 on C6 measuring 2 mm. Ot herwise normal alignment. Normal configuration of the craniocervical junction. Moderate degenerative changes. Prevertebral soft tissues are normal. IMPRESSION: No acute traumatic finding demonstrated by CT. Reviewed by: Levi Kennedy MD on 08/23/2021 4:16 PM PDT Approved by: Levi Kennedy MD on 08/23/2021 4:16 PM PDT Station ID: [id number]
--- NOTE | 2021-08-23 16:19 | CT Report ---
PROCEDURE: MAXILLOFACIAL WO INDICATIONS: Head and left-sided facial injuries TECHNIQUE: Noncontrast 1.5 mm thick axial images acquired from the mandible through the frontal sinuses, with co daniel and sagittal reformatting. For radiation dose reduction, the following was used: automated ex posure control, adjustment of mA and/or kV according to patient size. COMPARISON: None. FINDINGS: Image quality: Excellent. Bones and teeth: Orbital martinez are intact. Sinus martinez show no fracture or deformity. Nasal bones and septum are intact. Visualized portions of the mandible demonstrate no fractures or subluxation. Zygomatic arches are intact. Pterygoid plates are intact. Visualized portions of the skull base an d auditory canals are intact. Sinuses: Paranasal sinuses are aerated, without fluid levels, mucosal thickening, or mucoceles. Mas toid air cells are aerated. Soft tissues: Mild left periorbital soft tissue edema. Otherwise no edema, masses, or fluid collectio ns. No enlarged lymph nodes. No soft tissue lacerations or debris. Vascular: Visualized vascular structures appear normal in the absence of contrast. Bony vascular fo ramina and canals are intact. IMPRESSION: Mild left periorbital soft tissue swelling. No acute finding otherwise. Reviewed by: Levi Kennedy MD on 08/23/2021 4:18 PM PDT Approved by: Levi Kennedy MD on 08/23/2021 4:18 PM PDT Station ID: [id number]
== END 2021-08-23 17:03 | disposition home or self-care (01) ==
LOC: ED 15:31
DX: S06.0X0A Concussion without loss of consciousness, initial encounter (principal); W01.198A Fall on same level from slipping, tripping and stumbling with subsequent striking against other object, initial encounter; Y92.008 Other place in unspecified non-institutional (private) residence as the place of occurrence of the external cause; I10 Essential (primary) hypertension
CPT/HCPCS: 99282; 99284

== ENCOUNTER 2021-10-11 10:49 | Outpatient (CLI) | payer MEDICARE, OTHER ==
--- NOTE | 2021-10-11 14:48 | Ultrasound Report ---
PROCEDURE: Carotid Doppler Complete INDICATIONS: HYPERTENSION TECHNIQUE: Color and pulse Doppler interrogation was performed of both carotid systems, with image documentation and velocity measurements. COMPARISON: None. FINDINGS: Right side: Brachial blood pressure: 152/75 mm Hg. Common carotid artery peak systolic velocity: 47.3 cm/sec. Internal carotid artery peak systolic velocity: 52.7 cm/sec. Internal carotid artery end diastolic velocity: 22.8 cm/sec. External carotid artery peak systolic velocity: 73.3 cm/sec. ICA/CCA peak systolic ratio: 1.1 . Lawrence scale imaging description: Mild plaque in the bulb. Percent internal carotid artery stenosis: Less than 50% . Vertebral artery: Flow direction is antegrade. Left side: Brachial blood pressure: 148/78 mm Hg. Common carotid artery peak systolic velocity: 43.3 cm/sec. Internal carotid artery peak systolic velocity: 51.3 cm/sec. Internal carotid artery end diastolic velocity: 20.0 cm/sec. External carotid artery peak systolic velocity: 52.9 cm/sec. ICA/CCA peak systolic ratio: 1.2 . Lawrence scale imaging description: Mild plaque in the bulb Percent internal carotid artery stenosis: Less than 50% . Vertebral artery: Flow direction is antegrade. IMPRESSION: Mild plaque in the bulbs bilaterally. Less than 50% stenosis bilaterally. The estimate of stenosis included in the report of the imaging study was calculated using the NASCET method Reviewed by: Harsh Hyde on 10/11/2021 2:47 PM PDT Approved by: Harsh Hyde on 10/11/2021 2:47 PM PDT Station ID: [id number]
== END 2021-10-11 10:50 | disposition home or self-care (01) ==
LOC: DI 10:49
PROVIDERS: ATTEND Physician Assistant Medical
DX: I10 Essential (primary) hypertension (principal); R41.3 Other amnesia; I65.23 Occlusion and stenosis of bilateral carotid arteries
CPT/HCPCS: 93880

== ENCOUNTER 2022-10-20 06:52 | Outpatient (CLI) | payer MEDICARE, OTHER ==
[2022-10-20 12:57] LABS: BASOPHILS % (AUTO) 0.8 %; EOSINOPHILS # (AUTO) 0.1 10^3/uL (0.0-0.7); EOSINOPHILS % (AUTO) 2.7 %; HCT - HEMATOCRIT 43.2 % (37.0-47.0); HGB - HEMOGLOBIN 14.8 g/dL (12.0-16.0); LYMPHOCYTES # (AUTO) 1.1 10^3/uL (1.5-3.5); LYMPHOCYTES % (AUTO) 29.3 %; MEAN CORPUSCULAR HEMOGLOBIN 32.6 pg (27.0-31.0); MEAN CORPUSCULAR HGB CONC 34.3 g/dL (32.0-36.0); MEAN CORPUSCULAR VOLUME 95.2 fL (81.0-99.0); MEAN PLATELET VOLUME 10.1 fL (7.9-10.8); MONOCYTES # (AUTO) 0.5 10^3/uL (0.0-1.0); MONOCYTES % (AUTO) 12.5 %; NEUTROPHILS # (AUTO) 2.1 10^3/uL (1.5-6.6); NEUTROPHILS % (AUTO) 54.4 %; PLT - PLATELET COUNT 233 10^3/uL (130-450); RED BLOOD COUNT 4.54 10^6/uL (4.20-5.40); RED CELL DISTRIBUTION WIDTH 12.5 % (12.0-15.0); WHITE BLOOD COUNT 3.8 x10^3/uL (4.8-10.8)
[2022-10-20 13:15] LABS: ALBUMIN 4.4 g/dL (3.2-5.5); ALBUMIN/GLOBULIN RATIO 1.8 (1.0-2.2); ALKALINE PHOSPHATASE 91 IU/L (42-121); ALT ALANINE AMINOTRANSFERASE 17 IU/L (10-60); AST ASPARTATE AMINOTRANSFERASE 22 IU/L (10-42); BILIRUBIN,TOTAL 0.7 mg/dL (0.2-1.0); BUN - BLOOD UREA NITROGEN 13 mg/dL (6-20); CALCIUM 9.2 mg/dL (8.5-10.3); CARBON DIOXIDE - CO2 30 mmol/L (21-32); CHLORIDE 98 mmol/L (101-111); CHOL/HDL RATIO 1.9 (<4.4); CHOLESTEROL 171 mg/dL; CREATININE 0.6 mg/dL (0.6-1.3); GFR - MDRD 98 (>89); GLUCOSE 101 mg/dL (74-104); HDL CHOLESTEROL 88 mg/dL; LDL CHOLESTEROL,CALCULATED 67 mg/dL; LDL/HDL RATIO 0.8 (<4.4); POTASSIUM 4.3 mmol/L (3.5-4.5); SODIUM 132 mmol/L (135-145); TOTAL PROTEIN 6.8 g/dL (6.4-8.9); TRIGLYCERIDES 80 mg/dL (48-352); VLDL CHOLESTEROL 16 mg/dL
[2022-10-20 13:32] LABS: THYROID STIMULATING HORMONE 0.06 uIU/mL (0.34-5.60)
== END 2022-10-20 06:53 | disposition home or self-care (01) ==
LOC: LAB.N 06:52
PROVIDERS: ATTEND Physician Assistant Medical
DX: E78.5 Hyperlipidemia, unspecified (principal); E03.9 Hypothyroidism, unspecified; I10 Essential (primary) hypertension
CPT/HCPCS: 36415; 80053; 80061; 83721; 84439; 84443; 85025

== ENCOUNTER 2023-02-28 08:04 | Outpatient (CLI) | payer MEDICARE, OTHER | END 2023-02-28 08:05 | disposition home or self-care (01) | LOC: DI 08:04 | PROVIDERS: ATTEND Physician Assistant Medical | DX: R01.1 Cardiac murmur, unspecified (principal); I77.810 Thoracic aortic ectasia | CPT/HCPCS: 93306 ==

== ENCOUNTER 2023-03-06 09:04 | Outpatient (CLI) | payer MEDICARE, OTHER ==
--- NOTE | 2023-03-07 11:01 | Mammography Report ---
BILATERAL DIGITAL SCREENING MAMMOGRAM 3D/2D: 03/06/2023 CLINICAL: Routine screening. Comparison is made to exams dated: 08/03/2021 mammogram, 10/14/2019 mammogram, 11/28/2017 mammogram, 07/21/2016 mammogram, 03/26/2014 mammogram, and 12/14/2011 mammogram - [facility]. There are scattered areas of fibroglandular density in both breasts (category b / 25%-50% glandular t issue). No significant masses, calcifications, or other findings are seen in either breast. There has been no significant interval change. IMPRESSION: NEGATIVE There is no mammographic evidence of malignancy. A 1 year screening mammogram is recommended. Based on the Tyrer Cuzick model (a risk assessment model) the patient's lifetime risk is 4.3% and her 10 year risk is 3.9%. According to the ACR, ACS, and NCCN guidelines, an annual breast MRI exam mick g with mammogram is recommended if the patients lifetime risk is 20% or greater. This exam was interpreted at Station ID: [id number]. NOTE: For mammograms, a report in lay terms will be sent to the patient. Approximately 15% of breast malignancies will not be visualized mammographically. In the management of a palpable breast mass, a negative mammogram must not discourage biopsy of a clinically suspicious lesion. Electronically Signed By: Kamila Garrido M.D., PH.D /donna:03/06/2023 23:43:51 letter sent: No_Letter ACR BI-RADS Category 1: Negative 3341F PARENCHYMAL PATTERN: (A) - The breast(s) demonstrate(s) scattered fibroglandular densities. BI-RADS CATEGORY: (1) - 1 Mammogram [id number] 1 year screening LATERALITY: (B)
== END 2023-03-06 09:05 | disposition home or self-care (01) ==
LOC: DI.N 09:04
DX: Z12.31 Encounter for screening mammogram for malignant neoplasm of breast (principal); R92.323 Mammographic fibroglandular density, bilateral breasts

== ENCOUNTER 2023-03-28 06:49 | Outpatient (CLI) | payer MEDICARE, OTHER ==
[2023-03-28 12:47] LABS: THYROID STIMULATING HORMONE 0.19 uIU/mL (0.34-5.60)
== END 2023-03-28 06:50 | disposition home or self-care (01) ==
LOC: LAB.N 06:49
PROVIDERS: ATTEND Physician Assistant Medical
DX: E03.9 Hypothyroidism, unspecified (principal)
CPT/HCPCS: 36415; 84439; 84443

== ENCOUNTER 2023-04-02 12:36 | Outpatient (CLI) | payer MEDICARE, OTHER ==
--- NOTE | 2023-04-02 15:52 | Ultrasound Report ---
PROCEDURE: Pelvic Limited INDICATIONS: SOFT TISSUE LABIA PALP AREA RIGHT TECHNIQUE: Real-time transabdominal scanning was performed of the right labia, with image documentation. COMPARISON: None. FINDINGS: In the area of clinical concern, there is a subcutaneous hypoechoic area measuring 1.8 x 0.3 x 0.7 cm . No definite tract to the skin is visualized. Color-flow imaging demonstrates no vascularity. IMPRESSION: Subcutaneous hypoechoic region in the right labial region corresponding to area of clinical concern m easuring up to 1.8 cm. Findings may represent epidermal inclusion cyst. Reviewed by: Kamila Garrido MD on 04/02/2023 3:51 PM PST Approved by: Kamila Garrido MD on 04/02/2023 3:51 PM PST Station ID: [id number]
== END 2023-04-02 12:37 | disposition home or self-care (01) ==
LOC: DI 12:36
PROVIDERS: ATTEND Physician Assistant
DX: R19.03 Right lower quadrant abdominal swelling, mass and lump (principal)

== ENCOUNTER 2023-04-05 08:00 | Outpatient (CLI) | payer MEDICARE, OTHER | END 2023-04-05 23:59 | disposition home or self-care (01) | LOC: LAB.N 08:00 | PROVIDERS: ATTEND Physician Assistant Medical | DX: N75.1 Abscess of Bartholin's gland (principal) | CPT/HCPCS: 87070; 87077; 87205 ==

== ENCOUNTER 2023-09-19 10:21 | Outpatient (CLI) | payer MEDICARE, OTHER ==
[2023-09-19 12:19] LABS: BASOPHILS % (AUTO) 0.9 %; EOSINOPHILS # (AUTO) 0.1 10^3/uL (0.0-0.7); HCT - HEMATOCRIT 42.3 % (37.0-47.0); HGB - HEMOGLOBIN 14.5 g/dL (12.0-16.0); LYMPHOCYTES # (AUTO) 1.2 10^3/uL (1.5-3.5); LYMPHOCYTES % (AUTO) 26.2 %; MEAN CORPUSCULAR HEMOGLOBIN 31.8 pg (27.0-31.0); MEAN CORPUSCULAR HGB CONC 34.3 g/dL (32.0-36.0); MEAN CORPUSCULAR VOLUME 92.8 fL (81.0-99.0); MEAN PLATELET VOLUME 9.7 fL (7.9-10.8); MONOCYTES # (AUTO) 0.6 10^3/uL (0.0-1.0); MONOCYTES % (AUTO) 12.4 %; NEUTROPHILS # (AUTO) 2.6 10^3/uL (1.5-6.6); NEUTROPHILS % (AUTO) 58.3 %; PLT - PLATELET COUNT 256 10^3/uL (130-450); RED BLOOD COUNT 4.56 10^6/uL (4.20-5.40); RED CELL DISTRIBUTION WIDTH 12.9 % (12.0-15.0); WHITE BLOOD COUNT 4.4 x10^3/uL (4.8-10.8)
[2023-09-19 12:55] LABS: THYROID STIMULATING HORMONE 0.51 uIU/mL (0.34-5.60)
[2023-09-19 13:00] LABS: ALBUMIN 4.5 g/dL (3.2-5.5); ALBUMIN/GLOBULIN RATIO 2.1 (1.0-2.2); ALKALINE PHOSPHATASE 93 IU/L (42-121); ALT ALANINE AMINOTRANSFERASE 16 IU/L (10-60); AST ASPARTATE AMINOTRANSFERASE 23 IU/L (10-42); BILIRUBIN,TOTAL 0.6 mg/dL (0.2-1.0); BUN - BLOOD UREA NITROGEN 13 mg/dL (6-20); CALCIUM 9.1 mg/dL (8.5-10.3); CARBON DIOXIDE - CO2 30 mmol/L (21-32); CHLORIDE 96 mmol/L (101-111); CHOL/HDL RATIO 1.9 (<4.4); CHOLESTEROL 171 mg/dL; CREATININE 0.6 mg/dL (0.6-1.3); GFR - MDRD 97 (>89); GLUCOSE 94 mg/dL (74-104); HDL CHOLESTEROL 90 mg/dL; LDL CHOLESTEROL,CALCULATED 65 mg/dL; LDL/HDL RATIO 0.7 (<4.4); POTASSIUM 3.7 mmol/L (3.5-4.5); SODIUM 133 mmol/L (135-145); TOTAL PROTEIN 6.6 g/dL (6.4-8.9); TRIGLYCERIDES 82 mg/dL; VLDL CHOLESTEROL 16 mg/dL
== END 2023-09-19 10:22 | disposition home or self-care (01) ==
LOC: LAB.N 10:21
PROVIDERS: ATTEND Physician Assistant Medical
DX: E78.5 Hyperlipidemia, unspecified (principal); E03.9 Hypothyroidism, unspecified; I10 Essential (primary) hypertension
CPT/HCPCS: 36415; 80053; 80061; 83721; 84443; 85025

== ENCOUNTER 2023-10-08 06:45 | Outpatient (CLI) | payer MEDICARE, OTHER | END 2023-10-08 06:46 | disposition home or self-care (01) | LOC: LAB.N 06:45 | DX: R41.3 Other amnesia (principal) | CPT/HCPCS: 36415; 82607; 83921 ==

== ENCOUNTER 2023-10-13 06:43 | Outpatient (CLI) | payer MEDICARE, OTHER ==
--- NOTE | 2023-10-16 20:14 | MRI Report ---
PROCEDURE: Brain WO INDICATIONS: MEMORY LOSS TECHNIQUE: Noncontrast axial T1 spin echo, axial T2 fast spin echo, sagittal and axial FLAIR, coronal T2 fast sp in echo, axial gradient echo, axial diffusion and ADC through the brain. COMPARISON: 08/23/2021. FINDINGS: Image quality: Excellent. CSF Spaces: Basal cisterns are patent. No extra-axial fluid collections. Ventricles are normal in size and shape. Brain: No intracranial masses or hemorrhage. Lawrence/white matter interface is normal. Brainstem appe ars normal. Diffusion-weighted images demonstrate no acute ischemic insult. There is age-related gl obal volume loss and chronic microvascular ischemic changes, including within the brainstem. No chron ic ischemic insults. Normal intravascular flow voids are present. Skull and face: Calvarium has normal marrow signal. Bilateral lens replacements. The orbits are oth erwise normal in appearance. Sinuses: Sinuses and mastoids are clear. IMPRESSION: 1.Age-related global volume loss and chronic microvascular ischemic changes. 2.No acute intracranial abnormalities. Reviewed by: Tsyon Cuadra MD on 10/16/2023 8:12 PM PDT Approved by: Tyson Cuadra MD on 10/16/2023 8:12 PM PDT Station ID: [id number]
== END 2023-10-13 06:44 | disposition home or self-care (01) ==
LOC: DI 06:43
PROVIDERS: ATTEND Student in an Organized Health Care Education/Training Program
DX: R41.3 Other amnesia (principal)